=== PATIENT | male | born 1945 | race Caucasian/White ===

== ENCOUNTER 2021-11-24 05:43 | Day surgery (SDC) | payer MEDICARE ==
[2021-11-22 10:51] LABS: BASOPHILS % (AUTO) 0.5 % (0.0-5.0); HEMATOCRIT 37.3 % (42-54); LYMPHOCYTES % (AUTO) 30.2 % (21.0-51.0); MEAN CORPUSCULAR HEMOGLOBIN 31.8 pg (27.0-33.0); MEAN CORPUSCULAR VOLUME 96.4 fL (79-99); NEUTROPHILS % (AUTO) 51.9 % (40.0-77.0); PLATELET COUNT (AUTO) 183 K/uL (130-400); RED BLOOD CELL COUNT(AUTO) 3.87 MIL/uL (4.50-6.20); RED CELL DISTRIBUTION WIDTH 13.1 % (11.0-15.5); WHITE BLOOD COUNT (AUTO) 5.6 K/uL (4.8-10.8)
[2021-11-22 10:59] LABS: CREATININE 1.1 mg/dL (0.5-1.5); POTASSIUM 3.9 mmol/L (3.5-5.1)
[2021-11-22 11:26] LABS: INR 1.01 (0.85-1.15)
[2021-11-24] VITALS (14 sets, daily range): BP systolic 110–137; BP diastolic 59–83
[~2021-11-24] VITALS: Ht 188 cm; Wt 97.1 kg
[~2021-11-24 05:43] MED LIST: ASPI-1443 PO; CALC-1009 PO; DONE10TA8 PO; HYDR25TA PO; MAGN400T40 PO; MULT-1367 PO; ROSU5TAB PO; VALS320T2 PO; acyclovir PO
[2021-11-24] MEDS ORDERED: CEFAZOLIN SODIUM 1 GM VIAL IVP SCH (06:00)
[2021-11-24] MEDS ORDERED: LACTATED RINGERS 1000ML 1,000 ML IV ONE ×2 (06:50→07:21)
[2021-11-24] MEDS ORDERED: LIDOCAINE 1%-EPI 1:100,000 20 ML VIAL IJ SCH (07:00)
[2021-11-24] MEDS ORDERED: BACITRACIN 28.4 GM OINT TP ONE (07:00)
[2021-11-24] MEDS ORDERED: DEXAMETHASONE SOD PHOSPHATE 10MG/ML 1ML VIAL ONE (07:08)
[2021-11-24] MEDS ORDERED: LIDOCAINE PF 100MG/5ML (2%) SYRINGE 5ML ONE (07:08)
[2021-11-24] MEDS ORDERED: ONDANSETRON 4MG INJ ONE (07:08)
[2021-11-24] MEDS ORDERED: SUCCINYLCHOLINE CHLORIDE 20 MG/ML 10 ML VIAL ONE (07:08)
[2021-11-24] MEDS ORDERED: GLYCOPYRROLATE 1 MG/5 ML SYRINGE ONE (07:09)
[2021-11-24] MEDS ORDERED: NEOSTIGMINE 5MG/5ML SYR IV ONE (07:09)
[2021-11-24] MEDS ORDERED: ROCURONIUM 10MG/1ML SYR 10 MG/ML ML ONE ×2 (07:09→08:20)
[2021-11-24] MEDS ORDERED: PROPOFOL 10 MG/ML 20ML VIAL IV ONE (07:09)
[2021-11-24] MEDS ORDERED: FENTANYL CITRATE PF 50 MCG/1 ML 2ML VIAL ONE ×2 (07:10→08:58)
[2021-11-24] MEDS ORDERED: PROPOFOL 1000 MG/100 ML 100 ML IV ONE ×2 (07:14→07:29)
[2021-11-24] MEDS ORDERED: CEFAZOLIN SODIUM 1 GM VIAL IVP ONE (07:52)
[2021-11-24] MEDS ORDERED: EPHEDRINE SULFATE 50 MG/ML AMPULE ONE (08:00)
[2021-11-24] MEDS ORDERED: LIDOCAINE 1%-EPI 1:100,000 20 ML VIAL IJ ONE (08:02)
[2021-11-24] MEDS ORDERED: SUGAMMADEX SODIUM 200 MG/2 ML VIAL IV ONE (10:05)
== END 2021-11-24 11:18 | disposition home or self-care (01) ==
LOC: DAH 05:43
PROVIDERS: ATTEND Otolaryngology Plastic Surgery within the Head & Neck
DX: C44.222 Squamous cell carcinoma of skin of right ear and external auricular canal (principal); C44.319 Basal cell carcinoma of skin of other parts of face; Z20.822 Contact with and (suspected) exposure to COVID-19; I10 Essential (primary) hypertension; I45.10 Unspecified right bundle-branch block; I48.91 Unspecified atrial fibrillation; Z87.891 Personal history of nicotine dependence; Z98.890 Other specified postprocedural states; Z79.82 Long term (current) use of aspirin; Z79.899 Other long term (current) drug therapy; Z79.01 Long term (current) use of anticoagulants; Z88.8 Allergy status to other drugs, medicaments and biological substances
CPT/HCPCS: 11643; 11644; 13151; 36415; 71045; 80048; 85025; 85610; 87635; 93005; A4215; A4221; A4222; A4223; A4606; A4663; A6260; C9803; J0330; J0690 ×2; J1100; J2001; J2405; J2704 ×3; J2710; J3010 ×2; J3490 ×4; J7120 ×2

== ENCOUNTER → 2023-12-31 | Outpatient (CLI) | payer OTHER | END | disposition home or self-care (01) | LOC: RAH 09:34 | PROVIDERS: ATTEND Internal Medicine | DX: Z01.89 Encounter for other specified special examinations (principal); J32.2 Chronic ethmoidal sinusitis; J32.0 Chronic maxillary sinusitis; M89.30 Hypertrophy of bone, unspecified site; G93.6 Cerebral edema | CPT/HCPCS: 70551 ==